=== PATIENT | male | born 1975 | race Caucasian/White ===

== ENCOUNTER 2017-12-19 11:54 | Emergency (ER) | payer MEDICAID, OTHER ==
[~2017-12-19] VITALS: Ht 188 cm; Wt 65.8 kg
--- OUTSIDE RECORDS SUMMARY | 2017-12-19 12:02 | XMS REPORT ---
Author Author JAME LOVE [facility] Address [address] [place] [address] Care Team Providers Care Reaming Machine Tender Name Role Phone JAME LOVE Unavailable PROBLEMS Unknown Problems ALLERGIES No Information ENCOUNTERS Encounter Location Date Diagnosis [facility] [address] [address] Jul, Fracture of right pelvis with routine healing S32.9XXD [facility] [address] [place] [phone] Jun, [facility] [address] [place] [address] May, Fracture of right pelvis with routine healing S32.9XXD [facility] [address] [address] May, [facility] [address] [place] [address] May, Pelvic pain in male R10.2 IMMUNIZATIONS No Known Immunizations SOCIAL HISTORY Never Assessed REASON FOR VISIT h/o pelvic fracture ([facility]) Consult Jame Love;Arthur RT(R) PLAN OF CARE Activity Details Follow Up 3 Weeks with xrays Reason: VITAL SIGNS Height 74 in 2017-06-13 Blood pressure systolic 94 mmHg 2017-06-13 Blood pressure diastolic 70 mmHg 2017-06-13 MEDICATIONS Unknown Medications RESULTS Name Result Date Reference Range Xray : Pelvis 1-2 views (IN HOUSE) 2017-06-13 PROCEDURES Procedure Date Ordered Result Body Site X-RAY EXAM OF PELVIS Jun 13, 2017 INSTRUCTIONS MEDICATIONS ADMINISTERED No Known Medications MEDICAL (GENERAL) HISTORY Type Description Date Hospitalization History pelvic fracture, [facility] 05/2017
--- NOTE | 2017-12-19 12:19 | ED Upper Extremity ---
General Chief Complaint: Upper Extremity Stated Complaint: RIGHT SHOULDER PAIN Nursing Triage Note: AMBULATED TO ROOM 06 WITHOUT DIFFICULTY. COMPLAINS OF RIGHT SHOULDER PAIN X8 MONTHS. FELL OFF A ROOF 8 MONTHS AGO AND HAD A BROKEN PELVIS AT THE TIME. SHOULDER WAS NOT X-RAYED. Nursing Sepsis Screen: No Definite Risk Source: patient Exam Limitations: no limitations History of Present Illness Date Seen by Provider: Dec 19, 2017 Time Seen by Provider: 12:17 Initial Comments tto ER with right shoulder pain worsening over the past 3 weeks. He fell 8 months ago while living in [place], states that he fractured his pelvis and left foot. His shoulder was not evaluated. He now has a grinding sensation in his shoulder Onset: other (8 months ago worse 3 weeks) Severity: moderate Pain/Injury Location: right shoulder Method of Injury: fell Modifying Factors: Worse With Movement Allergies and Home Medications Allergies Coded Allergies: No Known Drug Allergies (Unverified , 12/19/17) Home Medications Naproxen 500 Mg Tablet, 500 MG PO BID PRN for PAIN-MODERATE Prescribed by: RADHA ARTIS on 12/19/17 1242 Patient Home Medication List Home Medication List Reviewed: Yes Constitutional: see HPI EENTM: see HPI Respiratory: no symptoms reported Genitourinary: no symptoms reported Musculoskeletal: see HPI Skin: no symptoms reported Psychiatric/Neurological: No Symptoms Reported Past Sgvhvyg-Zynwgq-Oqthqr Hx Patient Social History Alcohol Use: Denies Use Recreational Drug Use: No Smoking Status: Current Everyday Smoker Recent Foreign Travel: No Contact w/Someone Who Travel: No Recent Infectious Disease Expo: No Recent Hopitalizations: No Past Medical History Surgeries: Yes (FACE) Respiratory: No Cardiac: No Neurological: No Genitourinary: No Gastrointestinal: No Musculoskeletal: No Endocrine: No HEENT: No Cancer: No Did You Recieve Any Treatments: No Psychosocial: No Physical Exam Vital Signs Vital Signs - First Documented 12/19/17 12:02 Temp 98.0 Pulse 80 Resp 18 B/P (MAP) 107/72 (84) Pulse Ox 98 O2 Delivery Room Air Capillary Refill : Less Than 3 Seconds General Appearance: WD/WN, no apparent distress HEENT: PERRL/EOMI, normal ENT inspection Neck: non-tender, full range of motion Respiratory: normal breath sounds, no respiratory distress, no accessory muscle use Shoulder: deformity (there is bony deformity but there is no swelling ecchymosis or abrasion), limited ROM (crepitus upon active range of motion exercises), pain Elbow/Forearm: normal inspection, non-tender Wrist: Yes normal inspection, Yes non-tender Hand: normal inspection, non-tender Neurologic/Psychiatric: alert, normal mood/affect, oriented x 3 Skin: normal color, warm/dry Progress/Results/Core Measures Results/Orders My Orders Orders - RADHA ARTIS APRN Shoulder, Right, 3 Views (12/19/17 12:16) Foot, Left, 3 Views (12/19/17 12:16) Vital Signs/I&O 12/19/17 12:02 Temp 98.0 Pulse 80 Resp 18 B/P (MAP) 107/72 (84) Pulse Ox 98 O2 Delivery Room Air Blood Pressure Mean: 84 Departure Communication (Admissions) 1254- he was displeased with the offering of naproxen for pain control, he felt that would be inadequate. I did advise him to follow up with primary care and provide him with a list of primary care providers to help with his pain management. Impression Primary Impression: Internal derangement of right shoulder Disposition: 01 HOME, SELF-CARE Condition: Stable Departure-Patient Inst. Decision time for Depature: 12:41 Referrals: NO,LOCAL PHYSICIAN (PCP/Family) Primary Care Physician Patient Instructions: Shoulder Pain (DC) Add. Discharge Instructions: 1. Return to ER for any concerns 2. Follow-up with an orthopedic surgeon.. Anti-inflammatories for the pain in the meantime.All discharge instructions reviewed with patient and/or family. Voiced understanding. Scripts Naproxen (Naprosyn) 500 Mg Tablet 500 MG PO BID PRN for PAIN-MODERATE, #30 TAB Prov: RADHA ARTIS APRN 12/19/17 Work/School Note: Local Medical Staff Listing, Work Release Form Date Seen in the Emergency Department: Dec 19, 2017 Return to Work: Dec 20, 2017 Other Restrictions Listed Below: no use of right arm until released. RADHA ARTIS APRN Dec 19, 2017 12:19
--- NOTE | 2017-12-19 12:37 | Diagnostic Imaging Report ---
Indication: Right shoulder injury, fell off a roof. Three views of the right shoulder show no fracture, dislocation or other acute abnormalities. Impression: Negative right shoulder. Dictated by: Dictated on workstation # [id number]
--- NOTE | 2017-12-19 12:37 | Diagnostic Imaging Report ---
Indication: Left foot injury from falling of a roof. Three views of the left foot show no fracture, dislocation or other acute abnormalities. Impression: Negative left foot. Dictated by: Dictated on workstation # [id number]
[2017-12-19] MEDS ORDERED: NAPR-1071 PO (12:42)
[2017-12-19 12:55] VITALS: BP 107/72
== END 2017-12-19 12:55 | disposition home or self-care (01) ==
LOC: ER 11:58
DX: M24.811 Other specific joint derangements of right shoulder, not elsewhere classified (principal); F17.210 Nicotine dependence, cigarettes, uncomplicated; Z91.81 History of falling
CPT/HCPCS: 73030; 73630

== ENCOUNTER → 2018-01-02 | Outpatient (CLI) | payer MEDICAID ==
[~2018-01-02] MED LIST: NAPR-1071 PO
== END ==
LOC: RAD 09:01
PROVIDERS: ATTEND Nurse Practitioner Family
DX: Z53.8 Procedure and treatment not carried out for other reasons (principal); S43.91XA Sprain of unspecified parts of right shoulder girdle, initial encounter

== ENCOUNTER 2018-06-02 20:13 | Emergency (ER) | payer OTHER, MEDICAID ==
[~2018-06-02] VITALS: Ht 188 cm; Wt 65.8 kg
--- OUTSIDE RECORDS SUMMARY | 2018-06-02 20:19 | XMS REPORT ---
Author Author EMAM MONTES Organization [facility] Address [address] [place] [address] Care Team Providers Care Solvent Plant Operator Name Role Phone SIMON EMMA Unavailable PROBLEMS Type Condition ICD9-CM Code [id number] Code Onset Dates Condition Status SNOMED Code Problem Other chronic pain G89.29 Active [id number] ALLERGIES No Known Allergies ENCOUNTERS Encounter Location Date Diagnosis [facility] [id number] [place] [address] Dec, [place] [id number] [place] [address] 98748- 2898 Dec, Injury of right shoulder, initial encounter S49.91XA ; Pain in right shoulder M25.511 and Other chronic pain G89.29 [facility] [id number] [place] [address] 29278[address] 8[address] Jul, Fracture of right pelvis with routine healing S32.9XXD [facility] [address] [place] [address] 30872- 3[address] Jun, [facility] [address] [place] [address] 34920- 8739 May, Fracture of right pelvis with routine healing S32.9XXD [facility] [address] [place] [address] 96114- 2383 May, [facility] [id number] [place] [address] 91008- 1513 May, Pelvic pain in male R10.2 IMMUNIZATIONS Vaccine Route Administration Date Status TORADOL (IM) 60 MG/2ML (UP TO 15 MG) IM Intramuscular Jun 04, 2017 Administered SOCIAL HISTORY Never Assessed REASON FOR VISIT pelvic pain, fractured 3 week ago, admitted to [place], [place] [place], fell 12 feet off a roof on buttocks, moved to [place] on Saturday, could not make f/u with physician in [place], needing PCP PLAN OF CARE Activity Details Follow Up needs to establish care Reason: VITAL SIGNS Height 74 in 2017-06-04 Weight 138 lbs 2017-06-04 Temperature 97.9 degrees Fahrenheit 2017-06-04 Heart Rate 80 bpm 2017-06-04 Respiratory Rate 20 2017-06-04 BMI 17.72 kg/m2 2017-06-04 Blood pressure systolic 92 mmHg 2017-06-04 Blood pressure diastolic 68 mmHg 2017-06-04 MEDICATIONS Medication Instructions Dosage Frequency Start Date End Date Duration Status Hydrocodone-Acetaminophen 10-325 MG Orally every 6 hrs 1 tablet as needed 6h Active Tizanidine HCl 2 MG Orally 2 times a day 1 tablet as needed 12h Active Colace 100 mg Orally twice a day prn 1 capsule as needed Active Aspirin 81 MG Orally Once a day 1 tablet 24h May, Active RESULTS No Results PROCEDURES Procedure Date Ordered Result Body Site TORADOL (IM) 60 MG/2ML (UP TO 15 MG) Jun 04, 2017 THER/PROPH/DIAG INJ, SC/IM Jun 04, 2017 INSTRUCTIONS MEDICATIONS ADMINISTERED No Known Medications MEDICAL (GENERAL) HISTORY Type Description Date Hospitalization History pelvic fracture, [facility] 05/2017
--- OUTSIDE RECORDS SUMMARY | 2018-06-02 20:19 | XMS REPORT ---
Author Author JANET LOVE Organization [facility] Address [address] [place] [address] Care Team Providers Care Farm Equipment Mechanic Apprentice Name Role Phone LOVE, JANET Unavailable PROBLEMS Type Condition ICD9-CM Code [id number] Code Onset Dates Condition Status SNOMED Code Problem Other chronic pain G89.29 Active [id number] ALLERGIES No Information ENCOUNTERS Encounter Location Date Diagnosis [place] [id number] [place] [address] Dec, Injury of right shoulder, initial encounter S49.91XA ; Pain in right shoulder M25.511 and Other chronic pain G89.29 [place] [address] [place] [address] 58038[address] Jul, Fracture of right pelvis with routine healing S32.9XXD [place] [id number] [place] [address] 65055- [address] Jun, [place] [id number] [place] [address] 08408- 5324 May, Fracture of right pelvis with routine healing S32.9XXD [facility] [id number] [place] [address] 03046- 4854 May, [place] [address] [place] [address] 31245- 8984 May, Pelvic pain in male R10.2 IMMUNIZATIONS No Known Immunizations SOCIAL HISTORY Never Assessed REASON FOR VISIT Appointment PLAN OF CARE VITAL SIGNS MEDICATIONS No Known Medications RESULTS No Results PROCEDURES No Known procedures INSTRUCTIONS MEDICATIONS ADMINISTERED No Known Medications MEDICAL (GENERAL) HISTORY Type Description Date Hospitalization History pelvic fracture, [facility] 05/2017
--- OUTSIDE RECORDS SUMMARY | 2018-06-02 20:19 | XMS REPORT ---
Author Author RAUL EDWARDS Organization [facility] Address [address] [place] [address] Care Team Providers Care Acetylene Burner Name Role Phone GRACE RAUL Unavailable PROBLEMS Type Condition ICD9-CM Code [id number] Code Onset Dates Condition Status SNOMED Code Problem Other chronic pain G89.29 Active [id number] ALLERGIES No Known Allergies ENCOUNTERS Encounter Location Date Diagnosis [place] [id number] [place] [address]- [address] Dec, [place] [id number] [place] [address] 94286- 5553 Dec, Injury of right shoulder, initial encounter S49.91XA ; Pain in right shoulder M25.511 and Other chronic pain G89.29 [place] [id number] [place] [address] 98806- 97[address] Jul, Fracture of right pelvis with routine healing S32.9XXD [place] [id number] [place] [address] 56731- [address] Jun, [place] [id number] [place] [address] 05493- 1312 May, Fracture of right pelvis with routine healing S32.9XXD [place] [address] [place] [address] 45399- 6808 May, [place] [id number] [place] [address] 78361- 5061 May, Pelvic pain in male R10.2 IMMUNIZATIONS No Known Immunizations SOCIAL HISTORY Never Assessed REASON FOR VISIT Hospital f/u [facility] _ _ patient states he broke his rt shoulder 8 months ago and didn't know until yesterday he started having a lot of pain _ _ mzaldana, ma PLAN OF CARE Activity Details Follow Up prn Reason:MRI results VITAL SIGNS Height 74 in 2017-12-20 Weight 140.0 lbs 2017-12-20 Temperature 97.1 degrees Fahrenheit 2017-12-20 Heart Rate 78 bpm 2017-12-20 Respiratory Rate 18 2017-12-20 BMI 17.97 kg/m2 2017-12-20 Blood pressure systolic 136 mmHg 2017-12-20 Blood pressure diastolic 78 mmHg 2017-12-20 MEDICATIONS Medication Instructions Dosage Frequency Start Date End Date Duration Status Naproxen 500 MG Orally every 12 hrs 1 tablet with food or milk as needed 12h Active RESULTS Name Result Date Reference Range MRI : Shoulder, Right PROCEDURES No Known procedures INSTRUCTIONS MEDICATIONS ADMINISTERED No Known Medications MEDICAL (GENERAL) HISTORY Type Description Date Hospitalization History pelvic fracture, [facility] 05/2017
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
[2018-06-02] MEDS ORDERED: KETOROLAC 30 MG/ML VIAL IM ONE (21:30)
[2018-06-02] MEDS ORDERED: ACETAMINOPHEN 500 MG TAB (TYLENOL) PO ONE (21:30)
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
[2018-06-02] MEDS ORDERED: ACHD5005 PO (22:19)
[2018-06-02 22:49] VITALS: BP 112/86
== END 2018-06-02 22:49 | disposition home or self-care (01) ==
LOC: EDUNIT# 20:13 → ER 20:15
DX: S62.346A Nondisplaced fracture of base of fifth metacarpal bone, right hand, initial encounter for closed fracture (principal); S82.001A Unspecified fracture of right patella, initial encounter for closed fracture; R40.2142 Coma scale, eyes open, spontaneous, at arrival to emergency department; R40.2252 Coma scale, best verbal response, oriented, at arrival to emergency department; R40.2362 Coma scale, best motor response, obeys commands, at arrival to emergency department; V49.40XA Driver injured in collision with unspecified motor vehicles in traffic accident, initial encounter; Y92.410 Unspecified street and highway as the place of occurrence of the external cause
CPT/HCPCS: 73130; 73562

== ENCOUNTER 2018-10-09 14:49 | Outpatient (RCR) | payer MEDICAID, OTHER ==
[~2018-10-09 14:49] MED LIST changes: +ACHD5005 PO
== END 2018-10-09 15:12 | disposition home or self-care (01) ==
PROVIDERS: ATTEND Physician Assistant
DX: M25.561 Pain in right knee (principal); M23.51 Chronic instability of knee, right knee

== ENCOUNTER 2019-02-04 20:28 | Emergency (ER) | payer SELFPAY ==
[~2019-02-04] VITALS: Ht 185.4 cm; Wt 65.8 kg
--- OUTSIDE RECORDS SUMMARY | 2019-02-04 20:33 | XMS REPORT | Continuity of Care Document ---
Author Organization Unknown Address Unknown Allergies There is no data. Medications There is no data. Problems There is no data. Procedures There is no data. Results There is no data. Encounters ACCT No. Visit Date/Time Discharge Status Pt. Type Provider Facility Loc./Unit Complaint [id number] 12/22/2018 15:15:00 12/22/2018 23:59:59 CLS Outpatient [facility]
[2019-02-04 20:35] VITALS: BP 115/70
--- NOTE | 2019-02-04 20:35 | NUR ---
APPEARS LIKE CELLULITIS
--- NOTE | 2019-02-04 20:35 | NUR ---
PT HERE WITH " ". PT ALERT GCS 15. PT CUTS METAL FOR A LIVING BUT ALSO RELATES HE WAS UNDER THERE HOUSE WORKING AND MOLD PRESENT. . PT BEEN C/O INCREASED PAIN AND SWELLING AND REDNESS LEFT F/A X 4 DAYS. ON EXAM PT HAS SEVERAL APPEARS LIKE SCAB MINOR PUNCTURE WOUND WOUNDS TO POSTERIOR LEFT F/A PROX ELBOW. PINKISH RED THAT HAS TRAVELED TO PROX ACF AREA OF ANTERIOR F/A. POSITIVE PULSE AND SENATION LEFT HAND. SAYS UNK IF IT IS METAL OR NOT. MINOR SWELLING NOTED TO AREA. PT DENIES DYSPNEA AND NO ACUTE SIGHNS OF DYSPNEA NOTED. DONE DEUCE PT 2041.
[2019-02-04] MEDS ORDERED: TRIM/SULFAMETH 160/800 (SEPTRA DS) TAB PO ONE (20:45)
[2019-02-04] MEDS ORDERED: LIDOCAINE 1% INJ 20 ML 20 ML VIAL INJ ONE (20:45)
[2019-02-04] MEDS ORDERED: cefTRIAXone 1,000 MG/2.86 ml vial (IM ONLY) IM SCH (20:45)
[2019-02-04] MEDS ORDERED: RX-HYDROCODONE/APAP 5/325 MG #4 TAB PK PO PRN (20:45)
[2019-02-04] MEDS ORDERED: SULF1TAB35 PO (20:51)
[2019-02-04] MEDS ORDERED: CEPH-507 PO (20:51)
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
--- NOTE | 2019-02-04 21:18 | NUR ---
D/C INSTRUCTIONS TO PT AND . TOLD TO READ ALL PAPERS. SCRIPTS FAXED. PT LEFT AMBULATORY WITH . PT AND KNOWS F/U . I WENT OVER THE HANDTYPED BY DR SCHULTZ ON THE CHART. PT HAD NO IV. TAKE HOME VICODIN GIVEN.
== END 2019-02-04 21:18 | disposition home or self-care (01) ==
LOC: EDUNIT# 20:28 → ER 20:30
DX: L03.114 Cellulitis of left upper limb (principal); Z77.22 Contact with and (suspected) exposure to environmental tobacco smoke (acute) (chronic)
CPT/HCPCS: 96372; 99282